=== PATIENT | female | born 1980 | race Caucasian/White ===

== ENCOUNTER 2017-12-12 01:41 | Emergency (ER) | payer MEDICAID ==
[~2017-12-12] VITALS: Ht 552.4 cm; Wt 65.0 kg
[2017-12-12] MEDS ORDERED: normal saline 1000ML IV soln IVB ONE ×3 (01:50→08:10)
[2017-12-12] MEDS ORDERED: haloperidol lactate 5mg/ml inj IM ONE (02:40)
[2017-12-12] MEDS ORDERED: LORazepam 2 mg/ml vial IV ONE (02:40)
[2017-12-12 02:54] LABS: BASOPHILS % (AUTO) 0.2 % (0-1); EOSINOPHILS # (AUTO) 0.2 X10'3 (0-0.9); EOSINOPHILS % (AUTO) 1.7 % (0-6); HEMATOCRIT 36.3 % (35.0-45.0); HEMOGLOBIN 12.4 g/dl (12.0-16.0); LYMPHOCYTES # (AUTO) 2.9 X10'3 (1.1-4.8); LYMPHOCYTES % (AUTO) 19.7 % (21-51); MEAN CORPUSCULAR HEMOGLOBIN 29.9 PG (27.0-31.0); MEAN PLATELET VOLUME 8.3 FL (7.4-10.4); MONOCYTES # (AUTO) 0.5 X10'3 (0-0.9); MONOCYTES % (AUTO) 3.1 % (2-12); NEUTROPHILS # (AUTO) 11.1 X10'3 (1.8-7.7); NEUTROPHILS % (AUTO) 75.3 % (42-75); PLATELET COUNT 324 X10'3 (140-440); RED BLOOD COUNT 4.13 X10'6 (4.20-5.60); RED CELL DISTRIBUTION WIDTH 15.5 % (11.5-14.5); WHITE BLOOD COUNT 14.8 X10'3 (4.5-11.0)
[2017-12-12 03:01] LABS: INR 0.9 INR; PARTIAL THROMBOPLASTIN TIME 25 SECONDS (22-32); PROTHROMBIN TIME 9.5 SECONDS (9.0-12.0)
[2017-12-12] MEDS ORDERED: diphenhydrAMINE 50 mg/ml inj IV ONE (03:10)
[2017-12-12 03:16] LABS: CLARITY,URINE CLEAR (Clear); COLOR,URINE STRAW (Yellow); GLUCOSE, URINE NEGATIVE (Neg); KETONES,URINE NEGATIVE (Neg); LEUKOCYTE ESTERASE ,URINE NEGATIVE (Neg); NITRITES, URINE NEGATIVE (Neg); OCCULT BLOOD,URINE SMALL (Neg); PROTEIN,URINE NEGATIVE (Neg); UA COLLECTION TYPE OTHER; UROBILINOGEN,URINE 0.2 E.U/dL (0.2-1.0)
[2017-12-12 03:21] LABS: BACTERIA,URINE FEW /HPF (Neg); RBC,URINE 0-2 /HPF (0-2); SQUAMOUS EPITHELIAL CELL,UR FEW /LPF (FEW); WBC,URINE 0-4 /HPF (0-4)
[2017-12-12 03:27] LABS: URINE AMPHETAMINE SCREEN NEGATIVE (Neg); URINE BARBITUATE SCREEN NEGATIVE (Neg); URINE BENZODIAZEPINES SCREEN NEGATIVE (Neg); URINE CANNABINOID SCREEN NEGATIVE (Neg); URINE COCAINE SCREEN NEGATIVE (Neg); URINE METHADONE SCREEN NEGATIVE (Neg); URINE OPIATE SCREEN NEGATIVE (Neg); URINE PHENCYCLIDINE SCREEN NEGATIVE (Neg)
[2017-12-12 04:05] LABS: ALANINE AMINOTRANSFERASE 19 U/L (12-78); ALBUMIN 3.7 G/DL (3.4-5.0); ALKALINE PHOSPHATASE 59 IU/L (46-116); ANION GAP 17 (8-16); ASPARTATE AMINO TRANSFERASE 19 U/L (10-37); BILIRUBIN,TOTAL 0.2 MG/DL (0.1-1.0); BLOOD UREA NITROGEN 4 MG/DL (7-18); BUN/CREATININE RATIO 5.5 (6.6-38.0); CALCIUM 8.4 MG/DL (8.5-10.1); CHLORIDE 106 MMOL/L (99-107); CREATININE 0.73 MG/DL (0.40-0.90); GLUCOSE 107 MG/DL (70-104); POTASSIUM 3.6 MMOL/L (3.5-5.1); SODIUM 142 MMOL/L (135-145); TOTAL CARBON DIOXIDE 19.4 MMOL/L (24-32); TOTAL PROTEIN 7.3 G/DL (6.4-8.2); eGFR 90 ML/MIN
[2017-12-12 04:06] LABS: ETHANOL 0.325 GM/DL (0.0-0.010)
[2017-12-12] MEDS ORDERED: VENL-191 PO (07:27)
[2017-12-12] MEDS ORDERED: CYCL-1 PO (07:27)
[2017-12-12] MEDS ORDERED: glycopyrrolate 0.2mg/ml inj IV ONE (08:15)
[2017-12-12] MEDS ORDERED: ketorolac trometh. 30mg/ml inj. IV ONE (08:15)
[2017-12-12] MEDS ORDERED: nicotine 21mg patch - 24 hr TD ONE (10:20)
[2017-12-12] MEDS ORDERED: venlafaxine 37.5mg tablet PO SCH (12:20)
[2017-12-12] MEDS ORDERED: VENL75CA55 PO (12:23)
[2017-12-12] MEDS: venlafaxine XR 75mg capsule (Q24H) PO SCH (13:36)
[2017-12-12] MEDS ORDERED: HYDR25CA PO (15:47)
[2017-12-12] MEDS: hydrOXYzine 25 MG tablet PO PRN (16:18)
[2017-12-12] MEDS ORDERED: ibuprofen tablet 400 MG TABLET PO ONE (17:50)
[2017-12-12] MEDS: zolpidem 5mg tablet PO SCH (20:28)
[2017-12-13] MEDS: venlafaxine XR 75mg capsule (Q24H) PO SCH (08:42)
[2017-12-13] MEDS: hydrOXYzine 25 MG tablet PO PRN ×2 (10:35→16:12)
[2017-12-13 14:47] LABS: HCG SERUM QL POSITIVE
[2017-12-13] MEDS: zolpidem 5mg tablet PO SCH (20:07)
[2017-12-14] MEDS: venlafaxine XR 75mg capsule (Q24H) PO SCH (08:21)
[2017-12-14] MEDS: hydrOXYzine 25 MG tablet PO PRN ×3 (08:21→18:42)
[2017-12-14] MEDS ORDERED: nicotine 7mg patch - 24hr TD ONE (11:15)
[2017-12-14] MEDS: zolpidem 5mg tablet PO SCH (20:07)
[2017-12-15] MEDS: hydrOXYzine 25 MG tablet PO PRN (01:20)
[2017-12-15] MEDS ORDERED: Melatonin 3mg tablet PO SCH (01:35)
[2017-12-15] MEDS ORDERED: LORazepam 1 MG tablet PO ONE (01:35)
[2017-12-15] MEDS: venlafaxine XR 75mg capsule (Q24H) PO SCH (08:39)
[2017-12-15] MEDS ORDERED: ZOLP12.52 PO (09:49)
[2017-12-15 10:08] VITALS: BP 107/59
== END 2017-12-15 10:00 | disposition home or self-care (01) ==
LOC: EDBD 01:42 → ER 01:42
DX: F10.129 Alcohol abuse with intoxication, unspecified (principal)
CPT/HCPCS: 36415; 70450; 71045; 76856; 80053; 80305; 80320; 81001; 82948; 84443; 84702; 84703; 85025; 85610; 85730; 86900; 86901; 96361; 96372; 96374; 96375; 99285; A4315; A6449; J1200; J1630; J1885; J2060; J3490; J7030; Q0177